=== PATIENT | female | born 1960 | race Asian ===

== ENCOUNTER 2016-08-08 11:01 | Emergency (ER) | payer MEDICAID ==
--- NOTE | 2016-08-08 13:17 | EDPHY ---
H & P Time Seen by Provider: 08/08/16 13:16 HPI/ROS: Chief complaint. Tick bite HPI. 56-year-old female bitten by a tick that was attached to the back of her neck 1 week ago. She found another 1 attached to her abdomen 6 days ago. She has soreness at the site since for the past 3 days. However no fever or rash at either site. She also had dental extraction 5 days ago and is taking Augmentin. No chest pain, shortness of breath, abdominal pain. ROS Constitutional. no fever/chills, no weakness Eyes. no problems with vision ENT. no sore throat, no nasal drainage Cardiovascular. no chest pain Respiratory. no shortness of breath, no cough Abdominal. no abdominal pain, no nausea/vomiting, no diarrhea . no problems urinating MS. no calf pain/swelling, no neck/back pain, no joint pain Skin. Tick bite to back of neck and abdomen with slight surrounding erythema on the abdomen but otherwise no rash Lymph. no swollen glands Neuro. no headache, no dizziness, no difficulty walking or with speech Past Medical/Surgical History: ulcerative colitis Social History: Single, nonsmoker, no alcohol Smoking Status: Never smoked Physical Exam: General Appearance: Alert well-developed female mild distress vital signs are stable. Afebrile Eyes: Pupils equal and round no pallor or injection. ENT, Mouth: Mucous membranes are moist. Respiratory: There are no retractions, lungs are clear to auscultation. Cardiovascular: Regular rate and rhythm. Gastrointestinal: Abdomen is soft and nontender, no masses, bowel sounds normal. Neurological: Awake and alert, sensory and motor exams grossly normal. Skin: Posterior neck has slight erythema measuring about 3 mm posterior neck. No evidence of retained foreign body; left abdomen shows tick bite with no retained foreign body and about 1 cm surrounding erythema. Musculoskeletal: Neck is supple nontender. Extremities symmetrical, full range of motion. Psychiatric: Patient is oriented X 3, there is no agitation. Constitutional: Initial Vital Signs Temperature (C) 36.4 C 08/08/16 11:06 Heart Rate 83 08/08/16 11:06 Respiratory Rate 16 08/08/16 11:06 Blood Pressure 119/79 08/08/16 11:06 O2 Sat (%) 98 08/08/16 11:06 O2 Delivery Mode Room Air Allergies/Adverse Reactions: No Known Allergies Allergy (Unverified 08/08/16 11:09) Home Medications: Medication Instructions Recorded Doxycycline Hyclate 100 mg PO BID #14 tab 08/08/16 Medical Decision Making ED Course/Re-evaluation: Patient remained stable. She and I discussed tick borne diseases in addition to Lyme disease. We discussed treatment plan including criteria for return importance of follow-up and further evaluation. She expresses understanding and agreement Differential Diagnosis: Tick bite with mild symptoms. No typical rash of Lyme disease. However patient is vulnerable to other tick-borne infections Departure - Departure Disposition: Home, Routine, Self-Care Clinical Impression: Tick bite of abdomen Qualifiers: Encounter type: initial encounter Qualified Code(s): S30.861A - Insect bite ( nonvenomous) of abdominal wall, initial encounter; W57.XXXA - Bitten or stung by nonvenomous insect and other nonvenomous arthropods, initial encounter Condition: Good Instructions: Tick Bite (ED) Additional Instructions: Finished the Augmentin. Begin doxycycline today. Tylenol and ibuprofen as needed for soreness. Return for fever or rash. Recheck in 3-4 days if not improved Referrals: NONE *PRIMARY CARE P,. [Primary Care Provider] - As per Instructions Keagan Stewart MD [Medical Doctor] - 3-4 days, if not improved Prescriptions: Doxycycline Hyclate 100 mg PO BID #14 tab
[2016-08-08 14:08] VITALS: BP 126/52; PULSE 74; RESP 18; TEMP 98.6; O2SAT 96
== END 2016-08-08 14:05 | disposition home or self-care (01) ==
DX: S30.861A Insect bite (nonvenomous) of abdominal wall, initial encounter (principal); W57.XXXA Bitten or stung by nonvenomous insect and other nonvenomous arthropods, initial encounter

== ENCOUNTER → 2016-08-18 | Outpatient (CLI) | payer MEDICAID | LOC: FIMAGING 09:47 | PROVIDERS: ATTEND Family Medicine | DX: Z12.39 Encounter for other screening for malignant neoplasm of breast (principal); R92.2 Inconclusive mammogram | CPT/HCPCS: G0204 ==

== ENCOUNTER → 2016-08-19 | Outpatient (CLI) | payer MEDICAID | LOC: CIMAGING 10:18 | PROVIDERS: ATTEND Internal Medicine Infectious Disease | DX: R22.1 Localized swelling, mass and lump, neck (principal); W57.XXXA Bitten or stung by nonvenomous insect and other nonvenomous arthropods, initial encounter | CPT/HCPCS: 76536-PO ==

== ENCOUNTER → 2016-08-26 | Outpatient (CLI) | payer MEDICAID | LOC: FIMAGING 10:41 | PROVIDERS: ATTEND Family Medicine | DX: M85.80 Other specified disorders of bone density and structure, unspecified site (principal); Z13.820 Encounter for screening for osteoporosis ==

== ENCOUNTER → 2016-09-05 | Outpatient (CLI) | payer MEDICAID ==
[~2016-09-05] MED LIST: IOPAMIDOL (ISOVUE-300) 100 ML BTL ONE
== END ==
LOC: CIMAGING 11:11
PROVIDERS: ATTEND Internal Medicine Infectious Disease
DX: K13.79 Other lesions of oral mucosa (principal); M48.02 Spinal stenosis, cervical region; M47.892 Other spondylosis, cervical region
CPT/HCPCS: 70487-PO; Q9967

== ENCOUNTER → 2018-03-01 | Outpatient (CLI) | payer MEDICAID | LOC: FIMAGING 15:16 | PROVIDERS: ATTEND Family Medicine | DX: R92.8 Other abnormal and inconclusive findings on diagnostic imaging of breast (principal) ==

== ENCOUNTER → 2018-07-29 | Outpatient (CLI) | payer MEDICAID | LOC: FIMAGING 12:23 | PROVIDERS: ATTEND Otolaryngology | DX: J01.00 Acute maxillary sinusitis, unspecified (principal) ==